=== PATIENT | male | born 1995 | race African-American/Black ===

== ENCOUNTER 2025-02-01 21:23 | Emergency (ER) | payer SELFPAY ==
[~2025-02-01] VITALS: Ht 165.1 cm; Wt 81.2 kg
[2025-02-01 21:30] VITALS: O2SAT 100
[2025-02-01 22:23] VITALS: BP 134/76; PULSE 73; RESP 18; TEMP 36.8; O2SAT 98
[2025-02-01] MEDS: KETOROLAC 30MG/ML VIAL IM ONE (23:20)
[2025-02-01] MEDS: ACETAMINOPHEN 325MG TABLET PO ONE (23:20)
[2025-02-01] MEDS: TETANUS, DIPHTHERIA, PERTUSSIS VAC/PF 0.5ML (>10YR OLD) IM ONE (23:20)
[2025-02-02] MEDS ORDERED: NEOM1OIN18 TP
== END 2025-02-02 00:17 | disposition home or self-care (01) ==
LOC: ER 21:23
DX: S50.811A Abrasion of right forearm, initial encounter (principal); S80.212A Abrasion, left knee, initial encounter; X58.XXXA Exposure to other specified factors, initial encounter; Y93.89 Activity, other specified; Y92.89 Other specified places as the place of occurrence of the external cause; Y99.8 Other external cause status
CPT/HCPCS: 73110; 90715; 90471; 96372; 99284; J1885; Z7610